=== PATIENT | male | born 1975 | race Caucasian/White ===

== ENCOUNTER 2024-11-03 13:09 | Emergency (ER) | payer MEDICAID, SELFPAY ==
[2024-11-03 13:23] VITALS: BP 134/77; PULSE 102; RESP 18; TEMP 36.8; O2SAT 95
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
[2024-11-03 14:20] VITALS: BMI 27.1
[2024-11-03] MEDS: IBUPROFEN TAB 600 MG TABLET PO (14:43)
[2024-11-03] MEDS: LIDOCAINE HCL 1% 20 ML VIAL 10 ML INFL (15:23)
== END 2024-11-03 15:38 ==
PROVIDERS: Emergency Provider Emergency Medicine
DX: Z02.89 Encounter for other administrative examinations (principal); S01.81XA Laceration without foreign body of other part of head, initial encounter; Y04.0XXA Assault by unarmed brawl or fight, initial encounter
CPT/HCPCS: 12011; 99283; J3490; A9270

== ENCOUNTER 2025-01-02 15:53 | Emergency (ER) | payer MEDICAID, SELFPAY ==
[2025-01-02 16:10] VITALS: BP 137/71; PULSE 93; RESP 20; TEMP 37; O2SAT 96
--- NOTE | 2025-01-02 16:14 | PD.EDADULT ---
ED General RME/HPI General Chief complaint: Epistaxis/Nasal Foreign Body Stated complaint: BUG IN NOSE AND EAR Time Seen by Provider: 01/02/25 15:57 Arrival date/time: 01/02/25 15:53 RME / HPI RME / HPI narrative: 49-year-old male patient, homeless, came in for evaluation regarding multiple insect bites in the face. Patient woke up with multiple bite in the nose, left area, and cheek, with redness and itchiness. Patient does not remember the incident of insect bite. Patient denies any shortness of breath. Denies any cough denies any other complaints no medications taken prior to ER visit. Denies any fever. Patient tetanus vaccination is less than a year. Related Data Previous Rx's ?Medication ?Instructions ?Recorded amoxicillin 875 mg-potassium 1 tab PO BID #14 tabs 02/27/24 clavulanate 125 mg tablet naproxen 500 mg tablet (Naprosyn) 500 mg PO BID #14 tabs 02/27/24 diphenhydramine HCl 50 mg tablet 50 mg PO TID PRN allergic reaction 01/02/25 (Benadryl Allergy) #30 tabs prednisone 50 mg tablet 50 mg PO QDAY #7 tabs 01/02/25 sulfamethoxazole 800 1 tab PO BID #14 tabs 01/02/25 mg-trimethoprim 160 mg tablet (Bactrim DS) Allergies Allergy/AdvReac Type Severity Reaction Status Date / Time No Known Allergies Allergy Verified 01/02/25 15:55 Review of Systems Review of Systems Narrative Review of Systems: Review of system reviewed and within normal limits except mentioned in HPI ED Exam Narrative Physical exam: VITAL SIGNS: Reviewed. GENERAL APPEARANCE: Alert and interactive, follows commands, no acute distress, HEAD AND FACE: Multiple wounds on the face, with redness, nontender. ENT: PERRL, pink conjunctivitis, eyelid no trauma, Mucous membrane moist. NECK: Supple, nontender, no nuchal rigidity. CHEST: No tenderness, no crepitus, no paradoxical movement, no retractions. LUNGS: Clear, well ventilated, symmetric, no rales, no wheezing, no ronchi, no stridor, good breath sounds bilaterally. HEART: Regular rate, regular rhythm, no murmur, no gallops. ABDOMEN: Soft, positive bowel sounds, nondistended, no guarding, nontender, no rebound, no masses, RECTAL: Deferred. GENITAL: Deferred. NEUROLOGICAL: Gross motor function intact sensory function intact, Appropriate for age. MUSCULOSKELETAL: low back nontender, full range of motion. EXTREMITIES: Nontender, full range of motion. SKIN: Color pink, dry, no rash, no lacerations, no abrasions, no contusions. LYMPHATICS: Deferred. Course Quality Measures none Orders Category Date Time Status DiphenhydrAMINE [Benadryl] Med 01/02/25 16:12 Discontinued 50 mg PO X1 ONE Famotidine [Pepcid] Med 01/02/25 16:12 Discontinued 40 mg PO X1 ONE Trimethoprim/Sulfa 160/800 Ds [Bactrim Ds] Med 01/02/25 16:12 Discontinued 1 tab PO X1 ONE predniSONE Med 01/02/25 16:12 Discontinued 60 mg PO X1 ONE Vital Signs Vital signs: Vital Signs Temperature 98.6 F 01/02/25 16:10 Pulse Rate 93 01/02/25 16:10 Respiratory Rate 20 01/02/25 16:10 Blood Pressure 137/71 H 01/02/25 16:10 Pulse Oximetry (%) 96 01/02/25 16:10 Oxygen Delivery Method Room Air 01/02/25 16:10 [facility] Patient data External records reviewed:: None Clinical information provided by:: patient Social determinants that could affect healthcare access:: none Patient has the following chronic illnesses:: Homeless How is presenting disease/condition affected by chronic disease/condition?: exacerbated by Evaluation data The following diagnostics were reviewed and interpreted by me:: other (specify) (None) Lab and/or radiology exams considered but not ordered:: None Interpretation Summary: None Medications Medications considered but not ordered:: None Medication administrations:: Medication Administration History Discontinued Medications Diphenhydramine HCl (Diphenhydramine 25 Mg Capsule) 50 mg PO X1 ONE Stop: 01/02/25 16:13 Last Admin: 01/02/25 16:36 Dose: 50 mg Documented By: ELMA Famotidine (Famotidine 20 Mg Tablet) 40 mg PO X1 ONE Stop: 01/02/25 16:13 Last Admin: 01/02/25 16:36 Dose: 40 mg Documented By: ELMA Prednisone (Prednisone 20 Mg Tablet) 60 mg PO X1 ONE Stop: 01/02/25 16:13 Last Admin: 01/02/25 16:36 Dose: 60 mg Documented By: ELMA Trimethoprim/Sulfamethoxazole (Trimethoprim/Sulfa 160/800 Ds Tablet) 1 tab PO X1 ONE Stop: 01/02/25 16:13 Last Admin: 01/02/25 16:36 Dose: 1 tab Documented By: ELMA Bactrim prednisone Pepcid and Benadryl Consultations Consultation(s) initiated? (list below): No Diagnosis Differential Diagnosis ED Complaint MDM: Allergic reaction, infected insect bites, homelessness Most likely diagnosis given after review of the tests above:: Infected insect bites, Admission Indicated Admission indicated?: not indicated Explain why admission is indicated or not indicated:: Stable Admission Request Was there a request for admission?: No Disposition Plan Disposition Plan: Discharge Discharge Attestation Discharge Attestation: The patient was given an opportunity to ask questions and understood the discharge instructions. Discharge instructions specifically effects, indications for sooner follow up or return to the emergency department, and the expected course of current diagnosis. Patient condition: Stable Medical Decision Making MDM Narrative MDM Narrative: 49-year-old male patient, homeless, came in for evaluation regarding multiple insect bites in the face. Patient woke up with multiple bite in the nose, left area, and cheek, with redness and itchiness. Patient does not remember the incident of insect bite. Patient denies any shortness of breath. Denies any cough denies any other complaints no medications taken prior to ER visit. Denies any fever. Patient tetanus vaccination is less than a year. Patient received Bactrim, prednisone and Benadryl. Neosporin dressing applied. Patient appears nontoxic and hemodynamically stable. Patient discharged home and instructed to follow-up with primary care provider in 24 to 48 hours. Instructed to return to the emergency department immediately if worsening of symptoms Differential Diagnosis Differential Diagnosis: Allergic reaction, infected insect bites, homelessness Discharge Plan Plan Patient Disposition: HOME (Self Care) Disposition Comment: stable Prescriptions/Referrals Prescriptions/Med Rec: New sulfamethoxazole-trimethoprim [Bactrim DS] 800-160 mg tablet 1 tab PO BID Qty: 14 0RF prednisone 50 mg tablet 50 mg PO QDAY Qty: 7 0RF Benadryl Allergy 50 mg tablet 50 mg PO TID PRN (Reason: allergic reaction) Qty: 30 0RF No Action amoxicillin-pot clavulanate 875-125 mg tablet 1 tab PO BID Qty: 14 0RF naproxen [Naprosyn] 500 mg tablet 500 mg PO BID Qty: 14 0RF Problem List Clinical Impression: Infected insect bite Patient/Caregiver Discharge Instructions Discharge Activity: activity as tolerated Education Materials: ED Insect Bite Additional Instructions: Thank you for the opportunity for serving you today. You are stable for discharged . You are advised to: Follow-up with your PCP in 1 to 2 days Return to ED for worsening of symptoms Increase oral fluids Take medication as prescribed Daily dressing with Neosporin as needed Print Language: Mexican Stand Alone Forms: [employer] Award Info., Patient Portal Info Letter PA/MANAGER HOSPITAL Supervising Physician PA/MANAGER HOSPITAL Supervising Physician: MD Michele
[2025-01-02] MEDS: FAMOTIDINE 20 MG TABLET 40 MG PO (16:36)
[2025-01-02] MEDS: TRIMETHOPRIM/SULFA 160/800 DS TABLET 1 TAB PO (16:36)
[2025-01-02] MEDS: predniSONE 20 MG TABLET 60 MG PO (16:36)
[2025-01-02] MEDS: DiphenhydrAMINE 25 MG CAPSULE 50 MG PO (16:36)
== END 2025-01-02 19:52 | disposition home or self-care (01) ==
LOC: SERX 16:50
PROVIDERS: Emergency Provider Family Medicine
DX: S00.86XA Insect bite (nonvenomous) of other part of head, initial encounter (principal); W57.XXXA Bitten or stung by nonvenomous insect and other nonvenomous arthropods, initial encounter; Z59.00 Homelessness unspecified
CPT/HCPCS: 99282; J7512; A9270

== ENCOUNTER 2025-04-22 11:07 | Emergency (ER) | payer MEDICAID, SELFPAY ==
[2025-04-22] VITALS (18 sets, daily range): BP systolic 111–133; BP diastolic 70–91; PULSE 74–105; RESP 16–35; TEMP 35.9–37.2; O2SAT 88–99; BMI 27.8
--- NOTE | 2025-04-22 11:15 | EKG_ITS ---
[facility] Test Date: 2025-04-22 Pat Name: DEANDRE MURGUIA Department: Room: - Gender: Male Sample Collector: : 1975 Requested By: Twan Martínez Order Number: [id number] Reading MD: Twan Martínez Measurements Intervals Nancy Rate: 92 P: 72 WV: 133 QRS: -11 QRSD: 129 T: 36 QT: 369 QTc: 456 Interpretive Statements SINUS RHYTHM RIGHT BUNDLE BRANCH BLOCK [120+ ms QRS DURATION, UPRIGHT V1, 40+ ms S IN I/aVL/V4/V5/V6] No previous ECG available for comparison /store/S0/[id number].pdf
--- NOTE | 2025-04-22 11:15 | XR_ITS ---
Examination: AP chest single view Technique one AP portable upright chest single view Date and time: April 22, 2025 1150 hours Comparison April 13, 2023 INDICATIONS: Dyspnea beginning 2 days ago. FINDINGS: Normal heart size Bilateral extensive interstitial parenchymal disease most consistent with pneumonia Pleural scarring right hemithorax IMPRESSION: Diffuse significant bilateral pneumonia
--- NOTE | 2025-04-22 11:28 | PD.ASTHM ---
ED Asthma RME/HPI General Chief Complaint: Shortness of Breath/Dyspnea Stated Complaint: SOB Time Seen by Provider: 04/22/25 11:14 Source: patient Arrival date/time: 04/22/25 11:07 Limitations: no limitations RME / HPI RME / HPI Narrative: 49-year-old male was brought in by EMS today. Patient is homeless. He has a history of pediatric asthma but has no current medical illness. He had acute shortness of breath today and was found on scene at 89% and tachypneic. He had wheezing bilaterally. He received a dose of albuterol and then was placed on 2 L of oxygen via nasal cannula. Oxygen improved to 96%. She is also found to be hyperglycemic with blood sugar just over 200. Patient examined in the ambulance bay and his vital signs are stable. He had diffuse wheezing throughout the lung manriquez. Workup and therapies were initiated. Related Data Previous Rx's ?Medication ?Instructions ?Recorded amoxicillin 875 mg-potassium 1 tab PO BID #14 tabs 02/27/24 clavulanate 125 mg tablet naproxen 500 mg tablet (Naprosyn) 500 mg PO BID #14 tabs 02/27/24 diphenhydramine HCl 50 mg tablet 50 mg PO TID PRN allergic reaction 01/02/25 (Benadryl Allergy) #30 tabs prednisone 50 mg tablet 50 mg PO QDAY #7 tabs 01/02/25 sulfamethoxazole 800 1 tab PO BID #14 tabs 01/02/25 mg-trimethoprim 160 mg tablet (Bactrim DS) doxycycline hyclate 100 mg tablet 100 mg PO BID 7 days #14 tabs 04/22/25 Allergies Allergy/AdvReac Type Severity Reaction Status Date / Time No Known Allergies Allergy Verified 01/02/25 15:55 Review of Systems Review of Systems Systems Reviewed: All systems reviewed, normal except as documented ED Exam General Limitations: Present no limitations General appearance: Present alert and in no apparent distress Head Head exam: Present atraumatic Eye Eye exam: Present normal appearance, PERRL and EOMI ENT ENT exam: Present normal exam, normal oropharynx and mucous membranes moist Neck Neck exam: Present normal inspection, full ROM and trachea midline Chest Chest inspection: Present normal inspection and symmetric chest wall rise Respiratory Respiratory exam: Present wheezes and prolonged expiratory phase; Absent accessory muscle use Cardiovascular Cardiovascular exam: Present regular rate, normal rhythm and normal heart sounds Abdominal Exam Abdominal exam: Present soft and normal bowel sounds Extremities Exam Extremities exam: Present normal inspection and full ROM Back Exam Back exam: Present normal inspection and full ROM Neurological Exam Neurological exam: Present alert, oriented X3 and CN II-XII intact Psychiatric Psychiatric exam: Present normal affect and normal mood Skin Skin exam: Present warm, dry, intact and normal color Course Course Course Narrative: Patient received a dose of 2 DuoNeb treatments and Decadron. Lung manriquez improved. He reports feeling much better. He does not have healthcare insurance and access to medications. Will give him an additional therapy here with albuterol MDI. His glucose was also elevated at 173. He received a dose of 1 L, normal saline. Lactic acid was originally elevated and normalized after his bolus. Patient will be discharged from the ER. We discussed return precautions. He agrees to return as needed for any worsening emergent changes. Quality Measures none Orders Category Date Time Status EKG (ED ONLY) *Do not use* NOW Care 04/22/25 11:16 Active EKG (ED Only) Stat Exams 04/22/25 11:15 Ordered XR chest 1V Stat Exams 04/22/25 11:15 Ordered BNP [B-Type Natriuretic Peptide] Stat Lab 04/22/25 11:17 Ordered CBC Stat Lab 04/22/25 11:15 Ordered CMP [Comprehensive Metabolic Panel] Stat Lab 04/22/25 11:15 Ordered Ketone [Beta Hydroxybutyrate] Stat Lab 04/22/25 11:15 Ordered Lactic Acid [Lactate (Lactic Acid)] Stat Lab 04/22/25 11:15 Ordered Troponin I Stat Lab 04/22/25 11:15 Ordered Albuterol/Ipratr Rt Beatriz [Duoneb Rt Beatriz] Med 04/22/25 11:15 Discontinued 3 ml INH X1 ONE Albuterol/Ipratr Rt Beatriz [Duoneb Rt Beatriz] Med 04/22/25 11:15 Pending 3 ml INH X1 ONE Dexamethasone Inj [Decadron Inj] Med 04/22/25 11:30 Once 8 mg IV NOW ONE Dexamethasone Inj [Decadron Inj] 8 mg Med 04/22/25 11:15 Discontinued Sodium Chloride 0.9% [Ns] 50 ml IV X1 Asthma MDM Narrative MDM Narrative:: 41-year-old homeless male brought in by EMS for shortness of breath. He received a dose of albuterol en route and was noted to have diffuse wheezing. He was mildly hypoxic on scene at 89%. He is now on 2 L of nasal cannula and his O2 is 96%. His lactic acid is mildly elevated 2.1. He has a mildly elevated leukocytosis at 13.7. Glucose is also elevated at 173. Patient received a bolus of fluids and additional nebulized therapies. Patient data External records reviewed:: EMS form Clinical information provided by:: patient Social determinants that could affect healthcare access:: housing Patient has the following chronic illnesses:: n/a How is presenting disease/condition affected by chronic disease/condition?: no chronic disease Evaluation data The following diagnostics were reviewed and interpreted by me:: lab results (Mild leukocytosis at 13.7. Glucose 173, bicarbonate is within normal limits.), radiology exam(s) (Clear spinal lungs without mass lymph return) and EKG tracing(s) Lab and/or radiology exams considered but not ordered:: n/a Interpretation Summary: Acute asthma, hyperglycemia Medications / Prescriptions Medications or Prescriptions considered but not ordered:: n/a Medication administrations:: Medication Administration History Albuterol/Ipratropium (Albuterol/Ipratropium (Duoneb) Rt Beatriz 3 Ml Nebu) 3 ml INH X1 ONE Stop: 04/22/25 11:16 Dexamethasone Sodium Phosphate (Dexamethasone Sod Phos Inj 10 Mg/Ml Vial) 8 mg IV NOW ONE Stop: 04/22/25 11:31 Discontinued Medications Albuterol/Ipratropium (Albuterol/Ipratropium (Duoneb) Rt Beatriz 3 Ml Nebu) 3 ml INH X1 ONE Stop: 04/22/25 11:16 Dexamethasone Sodium Phosphate (8 mg/ Sodium Chloride) 50.8 mls @ 101.6 mls/hr IV X1 ONE Stop: 04/22/25 11:16 Consultations Consultation(s) initiated? (list below): No Diagnosis Differential diagnosis asthma: Acute exacerbation, Pneumonia, COPD exacerbation and Pulmonary edema systolic Most likely diagnosis given after review of the tests above:: Asthma, hyperglycemia, pneumonia Admission Indicated Admission indicated?: not indicated Admission Request Was there a request for admission?: No Disposition Plan Disposition Plan: Discharge Discharge Attestation Discharge Attestation: The patient and all family members were given an opportunity to ask questions and understood the discharge instructions. Discharge instructions specifically effects, indications for sooner follow up or return to the emergency department, and the expected course of current diagnosis. Patient condition: Stable Discharge Plan Plan Patient Disposition: HOME (Self Care) Patient condition on transfer: Stable Prescriptions/Referrals Prescriptions/Med Rec: New doxycycline hyclate 100 mg tablet 100 mg PO BID 7 Days Qty: 14 0RF No Action amoxicillin-pot clavulanate 875-125 mg tablet 1 tab PO BID Qty: 14 0RF naproxen [Naprosyn] 500 mg tablet 500 mg PO BID Qty: 14 0RF sulfamethoxazole-trimethoprim [Bactrim DS] 800-160 mg tablet 1 tab PO BID Qty: 14 0RF prednisone 50 mg tablet 50 mg PO QDAY Qty: 7 0RF Benadryl Allergy 50 mg tablet 50 mg PO TID PRN (Reason: allergic reaction) Qty: 30 0RF Referrals: Caden Nam MD [Primary Care Provider] - In 1 week Problem List Clinical Impression: Asthma attack, Acute hyperglycemia, Pneumonia Patient/Caregiver Discharge Instructions Education Materials: ED Diabetes with High Blood Sugar, Asthma Additional Instructions: - Continue using the inhaler that you are provided with today. - You will need to follow-up in clinic regarding your blood sugars and continued therapies. - Please not hesitate to return to the emergency room anytime for any worsening or emergent changes. Print Language: Costa Rican Stand Alone Forms: [employer] Award Info., Patient Portal Info Letter
[2025-04-22] MEDS: ALBUTEROL/IPRATROPIUM (Duoneb) RT SOL 3 ML NEBU INH ×2 (11:40→12:06)
[2025-04-22 11:51] LABS: Lactate (Lactic Acid) 2.1 mMol/L (0.4-2.0)
[2025-04-22 11:57] LABS: Beta Hydroxybutyrate 0.0 mmol/L (<0.6)
[2025-04-22 11:58] LABS: Basophils # (Auto) 0.0 Thou/mm3 (0.0-0.2); Basophils % (Auto) 0 % (0-2.5); Eosinophils # (Auto) 0.0 Thou/mm3 (0.0-0.5); Eosinophils % (Auto) 0 % (0-10); Hematocrit 39.6 % (41.0-53.0); Hemoglobin 13.7 g/dL (13.5-16.0); Immature Granulocytes Auto 0.12 Thou/mm3 (0.00-0.00); Lymphocytes # (Auto) 1.4 Thou/mm3 (1.0-4.8); Lymphocytes % (Auto) 10 % (10-50); Mean Corpuscular HGB Conc 34.6 g/dl (31.0-37.0); Mean Corpuscular Hemoglobin 31.6 pg (25.0-35.0); Mean Corpuscular Volume 92 fL (80-100); Monocytes # (Auto) 1.4 Thou/mm3 (0.0-0.8); Monocytes % (Auto) 10 % (0-12); Neutrophils # (Auto) 10.7 Thou/mm3 (1.8-7.7); Neutrophils % (Auto) 79 % (37-80); Nucleated Red Blood Cell # 0.00 Thou/mm3 (0.00-0.00); Nucleated Red Blood Cell % 0 /100 WBC (0); Platelet Count 353 Thou/mm3 (140-440); RDW Standard Deviation 41.9 fL (35.1-43.9); Red Blood Count 4.33 Miln/mm3 (4.50-5.90); White Blood Count 13.7 Thou/mm3 (3.8-10.6)
[2025-04-22] MEDS: DEXAMETHASONE SOD PHOS INJ 10 MG/ML VIAL 8 MG IV (12:04)
[2025-04-22 12:16] LABS: B-Type Natriuretic Peptide < 20 pg/mL (0-100)
[2025-04-22 12:19] LABS: Alanine Aminotransferase 27 U/L (10-49); Albumin, Serum 3.7 gm/dL (3.5-5.0); Albumin/Globulin Ratio 1.3 (1.2-2.2); Alkaline Phosphatase 101 U/L (46-116); Anion Gap 3 (7-16); Aspartate Amino Transferase 19 U/L (0-34); BUN/Creatinine Ratio 16 Ratio (12-20); Bilirubin,Total 0.7 mg/dL (0.3-1.2); Blood Urea Nitrogen 11 mg/dL (9-23); Calcium 8.5 mg/dL (8.3-10.6); Calcium (Corrected) 8.7 mg/dL (8.5-10.1); Carbon Dioxide 30.7 mMol/L (20.0-31.0); Chloride 98 mMol/L (98-107); Creatinine (Component) 0.7 mg/dL (0.6-1.3); Estimated Creatinine Clearance 148.7 mL/min (>60); Globulin 2.9 gm/dL (2.3-3.5); Glucose 173 mg/dL (74-106); Osmolality,Calculated 267 (275-295); Potassium 3.6 mMol/L (3.4-5.1); Sodium 132 mMol/L (136-145); Total Protein 6.6 gm/dL (5.7-8.2); Troponin I < 0.002 ng/mL (0.0-0.045); eGFR > 60 See Note
[2025-04-22] MEDS: SODIUM CHLORIDE 0.9% 1000 ML 1,000 ML 999 ML IV (13:13)
[2025-04-22 14:40] LABS: Reflex Lactate? Y
[2025-04-22 15:13] LABS: Lactic Acid, 3 HR 1.0 mMol/L (0.4-2.0)
[2025-04-22] MEDS: DOXYCYCLINE 100 MG TABLET PO (15:44)
[2025-04-22] MEDS: ALBUTEROL INH 8 GM 2 PUFF INH (16:53)
== END 2025-04-22 17:36 | disposition home or self-care (01) ==
PROVIDERS: Emergency Provider Physician Assistant Medical; PCP Family Medicine
DX: J45.909 Unspecified asthma, uncomplicated (principal); Z59.00 Homelessness unspecified; R73.9 Hyperglycemia, unspecified; I45.10 Unspecified right bundle-branch block; J18.9 Pneumonia, unspecified organism
CPT/HCPCS: 36415; 71045; 80053; 82010; 83605; 83880; 84484; 85025; 93005; 94640; 96361; 96374; 99284; A9270; J1100; J7030

== ENCOUNTER 2025-04-23 13:09 | Emergency (ER) | payer MEDICAID, SELFPAY ==
--- NOTE | 2025-04-23 14:02 | PD.EDRME ---
Rapid Medical Screening Exam RME Arrival date/time: 04/23/25 13:09 \ Chief Complaint: Shortness of Breath/Dyspnea Time Seen by Provider: 04/23/25 13:22
[2025-04-23 14:04] VITALS: BP 118/69; PULSE 93; RESP 20; TEMP 36.8; O2SAT 93; BMI 31.8
[2025-04-23] MEDS: cefTRIAXone 1,000 MG, LIDOCAINE 1% 20 ML 2.1 ML IM (14:28)
--- NOTE | 2025-04-23 14:29 | EDNOTE_ITS ---
ED SOB =RME/HPI General Chief Complaint: Shortness of Breath/Dyspnea Stated Complaint: SOB, cough, fever, seen yesterday Time Seen by Provider: 04/23/25 13:22 Arrival date/time: 04/23/25 13:09 This is a 49-year-old male that comes into the emergency room with complaints of cough and shortness of breath. Patient was here yesterday and was diagnosed with pneumonia. Patient has not picked up his antibiotics. Patient states his pharmacy was closed this morning. RME / HPI RME / HPI Narrative: 04/23/25 13:09 \ Related Data Previous Rx's ?Medication ?Instructions ?Recorded amoxicillin 875 mg-potassium 1 tab PO BID #14 tabs 07/14 clavulanate 125 mg tablet naproxen 500 mg tablet (Naprosyn) 500 mg PO BID #14 ta bs 02/27/24 diphenhydramine HCl 50 mg tablet 50 mg PO TID PRN china rgic reaction 01/02/25 (Benadryl Allergy) #30 tabs prednisone 50 mg tablet 50 mg PO QDAY #7 tabs sulfamethoxazole 800 1 tab PO BID #14 tabs mg-trimethoprim 160 mg tablet (Bactrim DS) doxycycline hyclate 100 mg tablet 100 mg PO BID 7 days #14 tabs 04/22/25 Allergies Allergy/AdvReac Type Severity Reaction Status Date / Time No Known Allergies Allergy Verified 04/23/25 13:13 Course Orders Category Date Time Status EKG (ED Only) Stat Exams 04/23/25 14:02 Stop Req Acetaminophen Tab [Tylenol ES Tab] Med 04/23/25 14:29 Discontinued 1,000 mg PO X1 ONE Albuterol/Ipratr Rt Beatriz [Duoneb Rt Beatriz] Med 04/23/25 14:15 Discontinued 3 ml INH X1 ONE Ibuprofen Tab [Motrin Tab] Med 04/23/25 14:29 Discontinued 800 mg PO X1 ONE cefTRIAXone [Rocephin] 1,000 mg Med 04/23/25 14:16 Discontinued Lidocaine 1% 20 ml [Xylocaine 1% 20 ML] 2.1 ml IM X1 Vital Signs Vital signs: Vital Signs Temperature 98.3 F 04/23/25 14:04 Pulse Rate 93 04/23/25 14:04 Respiratory Rate 20 04/23/25 14:04 Blood Pressure 118/69 04/23/25 14:04 Pulse Oximetry (%) 93 L 04/23/25 14:04 Oxygen Delivery Method Room Air 04/23/25 14:04 Shortness of Breath / Dyspnea MDM Narrative MDM Narrative:: Spoke to patient at length. Patient has not picked up his antibiotics. Patient does have an inhaler. And he has been using it. I did give patient a breathing treatment here along with Tylenol and ibuprofen. I gave patient a dose of Rocephin in the meantime while he gets his antibiotics picked up tomorrow from the pharmacy. Patient told to make sure he follows up with his primary provider in 1 to 2 days. Come back to the emergency room if symptoms change or worsen. Medications / Prescriptions Medication administrations:: Medication Administration History Discontinued Medications Acetaminophen (Acetaminophen 500 Mg Tablet) 1,000 mg PO X1 ONE Stop: 04/23/25 14:30 Last Admin: 04/23/25 14:34 Dose: 1,000 mg Documented By: Albuterol/Ipratropium (Albuterol/Ipratropium (Duoneb) Rt Beatriz 3 Ml Nebu) 3 ml INH X1 ONE Stop: 04/23/25 14:16 Last Admin: 04/23/25 14:46 Dose: 3 ml Documented By: RG Ceftriaxone Sodium 1,000 mg/ (Lidocaine HCl 2.1 ml) 0 mg IM X1 ONE Stop: 04/23/25 14:17 Last Admin: 04/23/25 14:28 Dose: 1,000 mg Documented By: Ibuprofen (Ibuprofen Tab 400 Mg Tablet) 800 mg PO X1 ONE Stop: 04/23/25 14:30 Last Admin: 04/23/25 14:33 Dose: 800 mg Documented By: Discharge Plan Plan Patient Disposition: HOME (Self Care) Patient condition on transfer: Stable Prescriptions/Referrals Prescriptions/Med Rec: No Action amoxicillin-pot clavulanate 875-125 mg tablet 1 tab PO BID Qty: 14 0RF naproxen [Naprosyn] 500 mg tablet 500 mg PO BID Qty: 14 0RF sulfamethoxazole-trimethoprim [Bactrim DS] 800-160 mg tablet 1 tab PO BID Qty: 14 0RF prednisone 50 mg tablet 50 mg PO QDAY Qty: 7 0RF Benadryl Allergy 50 mg tablet 50 mg PO TID PRN (Reason: allergic reaction) Qty: 30 0RF doxycycline hyclate 100 mg tablet 100 mg PO BID 7 Days Qty: 14 0RF Problem List Clinical Impression: Pneumonia, RAD (reactive airway disease) Patient/Caregiver Discharge Instructions Discharge Activity: activity as tolerated Education Materials: Treating Pneumonia, ED Inhaler Use Additional Instructions: Follow up with primary provider in 1-2 days. 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 Print Language: Divehi Stand Alone Forms: Moon Award Info., Patient Portal Info Letter PA/[employer] Supervising Physician PA/[employer] Supervising Physician: [email or web address]
[2025-04-23] MEDS: IBUPROFEN TAB 400 MG TABLET 800 MG PO (14:33)
[2025-04-23] MEDS: ACETAMINOPHEN 500 MG TABLET 1000 MG PO (14:34)
[2025-04-23] MEDS: ALBUTEROL/IPRATROPIUM (Duoneb) RT SOL 3 ML NEBU INH (14:46)
[2025-04-23 14:49] VITALS: PULSE 87; RESP 18; O2SAT 98
== END 2025-04-23 15:06 | disposition home or self-care (01) ==
LOC: SERX 15:24
PROVIDERS: Emergency Provider Family Medicine; PCP Family Medicine
DX: J18.9 Pneumonia, unspecified organism (principal); J45.909 Unspecified asthma, uncomplicated
CPT/HCPCS: 80053; 80307; 81001; 83880; 84484; 85025; 94640; 96372; 99283; A9270; J0696; J3490